=== PATIENT | female | born 1935 | race Two or more races ===

== ENCOUNTER → 2023-10-21 14:13 | Outpatient (REF) | payer OTHER, SELFPAY | LOC: RAD 14:13 | PROVIDERS: ATTENDING PHYSICIAN Internal Medicine Hematology & Oncology; FAMILY PHYSICIAN Family Medicine | DX: M79.605 Pain in left leg (principal) | CPT/HCPCS: 93971 ==

== ENCOUNTER 2023-10-21 16:12 | Emergency (ER) | payer OTHER, SELFPAY ==
[2023-10-21 16:17] VITALS: BP 176/85
--- NOTE | 2023-10-21 17:26 | ED.GENMED ---
History of Present Illness
General
Chief Complaint: Swelling
Time Seen by Provider: 10/21/23 17:11
History of Present Illness
History of Present Illness:
88-year-old female presents to the emergency department for evaluation of a positive left lower extremity DVT ultrasound. She states she has had left calf swelling and discomfort for the past 5 months, began after having a bladder lift procedure
done at [facility] in May. She followed up today with hematology due to anemia where leg swelling was noted and she was sent for an outpatient ultrasound, where she was identified to have an occlusive DVT in the left posterior tibial,
peroneal, popliteal, and superficial femoral veins. She denies any numbness to the leg. No fevers or chills. She is uncertain of when her last hemoglobin was, did require blood transfusions while in the hospital
Review of Systems
Review of Systems
Allergies reviewed?: Yes
All Other Systems: ROS reviewed and negative except as documented in HPI and ROS
Phy Exam
Physical Exam
Physical Exam:
GEN: Well appearing, NAD, WDWN
HEENT: Oral mucosa moist, no scleral icterus
Cardiac: Regular rate
Lung: No respiratory distress, no tachypnea
MSK: Edema of the left lower extremity from the calf down, strong pedal pulse, normal capillary refill
Skin: Good color, no pallor or jaundice, no rashes
Neuro: AO x3, moves all extremities freely
Psych: Calm, cooperative
Scores
Heart Failure Risk
Heart Failure Risk Score: Not Applicable
Course
Orders/Labs/Results
Orders:
Orders
10/21/23 17:25
Apixaban [Eliquis] 10 mg PO NOW STA
10/21/23 17:30
Complete Blood Count/With Diff Urgent
Abnormal Lab Results
10/21/23
17:30
RBC 3.58 L 10^6/uL
(4.20-5.40)
Hgb 10.9 L g/dL
(12.0-16.0)
Hct 32.8 L %
(37.0-47.0)
MPV 10.7 H fL
(7.4-10.4)
Abs Immat Gran (auto) 0.1 H 10^3/uL
(0-0.05)
Absolute Monos (auto) 0.8 H 10^3/uL
(0.1-0.6)
Immature Gran % 0.6 H %
(0-0.5)
Monocytes % 9.9 H %
(1.7-9.3)
10/21/23 17:30
Vital Signs
Initial and Last Documented VS:
Initial Vital Signs
Temp Pulse Resp BP Pulse Ox
97.6 F 68 18 176/85 100
10/21/23 16:17 10/21/23 16:17 10/21/23 16:17 10/21/23 16:17 10/21/23 16:17
Last Documented Vital Signs
Temp Pulse Resp BP Pulse Ox
97.6 F 68 18 176/85 100
10/21/23 16:17 10/21/23 16:17 10/21/23 16:17 10/21/23 16:17 10/21/23 16:17
MDM/Problems Addressed
MDM/Problems Addressed:
Unclear cause of DVT, certainly could be from her surgery however would be atypical to have a DVT for this long without progression proximally. Certainly could be in the setting of recent COVID-19. Will start the patient on anticoagulants
*Critical Care Note
Total Time (30-74mins, 75-104mins- exclusive of procedures): Not Applicable
Update Note
Update Note:
10/22/2023 1437: Pt's insurance does not have adequate coverage for Eliquis. I contacted the pharmacy, and this is the case for Xarelto as well due to Medicare 'donut hole'. I discussed this with the patient, and she states she cannot afford the cost
of the medication. I have offered her a savings coupon for 1month free, however this would still require her to work with her insurance and PCP to determine a remote computer terminal operator option as she will need at least 3 mos of OAC. She was also offered the option
of admission to the hospital for heparin/lovenox bridge to coumadin. After a lengthy conversation, she informs me that she cannot spare the time of a hospitalization. Will leave Rx Coupon at ED front end assistant. I contacted the pharmacy to re-authorize
the Eliquis Rx and confirm the validity of the 1 month coupon.
ED Attending Note
-
Portions of this chart may have been created with voice recognition software.� Occasional wrong word or��sound alike� substitutions may have occurred due to the inherent limitations of voice recognition software.
Discharge Plan
Departure
Patient Disposition: Home (Routine Discharge)
Date of Disposition: 10/21/23
Time of Disposition: 17:48
Patient with high blood pressure during this ER visit?: No
Discharge Problem:
Acute deep vein thrombosis (DVT) of left lower extremity
Instructions: Deep vein thrombosis (blood clot in the leg), Apixaban
Prescriptions:
New
Eliquis 5 mg tablet
5 mg PO BID Qty: 74 0RF
Rx Instructions:
10mg PO bid x 7d, then 5mg PO bid
Referrals:
Chelly Delgado MD [Family Provider] -
Activity Restrictions/Additional Instructions:
You are being started on a blood thinner. You will need to take this for AT LEAST 3-6 months, if not longer
Follow up with your primary care physician within 2-4 weeks for a repeat ultrasound of the leg, as well as further refills of your blood thinner
While you are on blood thinners, you CANNOT TAKE NSAIDs (ibuprofen, aspirin, naproxen). However, Tylenol (acetaminophen) is fine
If you have any head or chest/abdominal injuries (such as a fall or car accident), YOU NEED TO BE EVALUATED IN THE EMERGENCY DEPARTMENT, as blood thinners can cause life threatening bleeding.
Interventions
Interventions:
*General Assessment Last Done: 10/21/23 16:17
ED- Fall Risk Assessment Last Done: 10/21/23 17:00
*ED COVID-19 Vaccine History Last Done: 10/21/23 16:17
*Nursing Disposition Last Done: 10/21/23 18:16
ED- Cardiac Assessment Last Done: 10/21/23 17:00
ED- Pulmonary Assessment Last Done: 10/21/23 17:00
Discharge Date and Time
Discharge Date/Time: 10/21/23 18:17
Print Language: TURKISH
[2023-10-21] MEDS: ELIQUIS 10 MG PO (17:30)
[2023-10-21 17:54] LABS: % Basophils 0.7 % (0-2); % Eosinophils 3.5 % (0-6); % Immature Granulocytes 0.6 % (0-0.5); % Lymphocytes 21.9 % (20.5-51.1); % Monocytes 9.9 % (1.7-9.3); % Neutrophils 63.4 % (42.2-75.2); Absolute Basophils 0.1 10^3/uL (0-0.2); Absolute Eosinophils 0.3 10^3/uL (0-0.7); Absolute Immature Granulocytes 0.1 10^3/uL (0-0.05); Absolute Lymphocytes 1.8 10^3/uL (1.2-3.4); Absolute Monocytes 0.8 10^3/uL (0.1-0.6); Absolute Neutrophils 5.3 10^3/uL (1.4-6.5); Hematocrit 32.8 % (37.0-47.0); Hemoglobin 10.9 g/dL (12.0-16.0); Mean Corp Hgb Conc. 33.2 g/dL (33.0-37.0); Mean Corpuscular Hgb 30.4 pg (27.0-31.0); Mean Corpuscular Volume 91.6 fL (81.0-99.0); Mean Platelet Volume 10.7 fL (7.4-10.4); Nucleated Red Blood Cells % 0 %; Platelet Count 207 10^3/uL (130-400); Red Blood Cell Count 3.58 10^6/uL (4.20-5.40); Red Cell Dist. Width 13.3 % (11.5-14.5); White Blood Cell Count 8.4 10^3/uL (4.8-10.8)
== END 2023-10-21 18:17 | disposition home or self-care (01) ==
LOC: EMR 16:12
PROVIDERS: Physician Assistant; EMERGENCY PHYSICIAN Emergency Medicine; FAMILY PHYSICIAN Family Medicine
DX: I82.402 Acute embolism and thrombosis of unspecified deep veins of left lower extremity (principal); D64.9 Anemia, unspecified
CPT/HCPCS: 99283; 85025

== ENCOUNTER → 2024-01-09 08:52 | Outpatient (REF) | payer OTHER, SELFPAY | LOC: RAD 08:52 | PROVIDERS: ATTENDING PHYSICIAN Internal Medicine Hematology & Oncology; FAMILY PHYSICIAN Family Medicine | DX: M79.605 Pain in left leg (principal); N18.31 Chronic kidney disease, stage 3a; D63.8 Anemia in other chronic diseases classified elsewhere; D63.1 Anemia in chronic kidney disease; N82.1 Other female urinary-genital tract fistulae | CPT/HCPCS: 93971 ==

== ENCOUNTER → 2024-04-19 08:22 | Outpatient (REF) | payer OTHER, SELFPAY | LOC: RAD 08:22 | PROVIDERS: ATTENDING PHYSICIAN Internal Medicine Hematology & Oncology; FAMILY PHYSICIAN Family Medicine | DX: N18.31 Chronic kidney disease, stage 3a (principal); D63.8 Anemia in other chronic diseases classified elsewhere; D63.1 Anemia in chronic kidney disease; N82.1 Other female urinary-genital tract fistulae | CPT/HCPCS: 93971 ==

== ENCOUNTER → 2024-08-13 10:56 | Outpatient (REF) | payer OTHER, SELFPAY | LOC: RAD 10:56 | PROVIDERS: ATTENDING PHYSICIAN Internal Medicine Hematology & Oncology; FAMILY PHYSICIAN Family Medicine | DX: N18.31 Chronic kidney disease, stage 3a (principal); D63.8 Anemia in other chronic diseases classified elsewhere; D63.1 Anemia in chronic kidney disease; N82.1 Other female urinary-genital tract fistulae | CPT/HCPCS: 93971 ==

== ENCOUNTER → 2024-10-16 14:55 | Outpatient (REF) | payer OTHER, SELFPAY | LOC: RAD 14:55 | PROVIDERS: ATTENDING PHYSICIAN Nurse Practitioner Primary Care; FAMILY PHYSICIAN Family Medicine | DX: M79.605 Pain in left leg (principal) | CPT/HCPCS: 93971 ==

== ENCOUNTER → 2025-02-26 12:54 | Outpatient (REF) | payer OTHER, SELFPAY | LOC: RAD 12:54 | PROVIDERS: ATTENDING PHYSICIAN Internal Medicine Hematology & Oncology; FAMILY PHYSICIAN Family Medicine | DX: I82.492 Acute embolism and thrombosis of other specified deep vein of left lower extremity (principal) | CPT/HCPCS: 93971 ==